=== PATIENT | male | born 1970 | race Caucasian/White ===

== ENCOUNTER 2025-06-11 21:10 | Emergency (ER) | payer BC, SELFPAY ==
[2025-06-11 21:21] VITALS: BP 185/120
[2025-06-11 21:37] LABS: Hematocrit 47.5 % (39.0-52.0); Hemoglobin 17.2 g/dL (13.0-18.0); Mean Corp Hgb Conc. 36.2 g/dL (33.0-37.0); Mean Corpuscular Volume 95.4 fL (80.0-94.0); Nucleated Red Blood Cells % 0 % (-); Platelet Count 227 10^3/uL (130-400); Red Cell Dist. Width 12.5 % (11.5-14.5)
[2025-06-11 21:58] LABS: ALT (SGPT) 61 U/L (0-50); AST (SGOT) 39 U/L (17-59); Albumin 4.5 g/dl (3.5-5.0); Alkaline Phosphatase 60 U/L (38-126); Blood Urea Nitrogen 11 mg/dl (9-20); Calcium 9.3 mg/dl (8.4-10.2); Carbon Dioxide 26 mmol/L (22-30); Chloride 100 mmol/L (98-107); Glucose 102 mg/dl (70-99); Potassium 3.9 mmol/L (3.5-5.1); Sodium 136 mmol/L (135-145); Total Protein 7.3 g/dl (6.3-8.2); eGFR > 60.00
[2025-06-11 22:09] LABS: Troponin I < 0.012 ng/ml
[2025-06-12] VITALS (12 sets, daily range): BP systolic 136–161; BP diastolic 81–107; BMI 26.8
--- NOTE | 2025-06-12 01:40 | ED.GENMED ---
History of Present Illness
<Oneil Samuels DO - Last Filed: 06/12/25 06:41>
General
Chief Complaint: Chest Pain
Source: patient
Time Seen by Provider: 06/12/25 01:20
History of Present Illness
History of Present Illness:
Note:
CHIEF COMPLAINT(S)
Chest pain, dizziness, and heart palpitations.
HISTORY OF PRESENT ILLNESS
The patient is a 55-year-old male with a past medical history of hypertension and diabetes who presents with symptoms of chest pain, dizziness, and palpitations that began approximately one week ago. The patient describes the chest pain as mild and
occurring intermittently, noting that it radiates to the back of the left arm and shoulder. He experiences these symptoms mainly at rest, without exertional triggers, and he feels his heart racing with episodes of dizziness, particularly when
standing. He reports a history of a similar episode years ago, attributed to dehydration. Tonight, the patient expressed concern about the persistence of his symptoms and sought evaluation. He relates the onset of symptoms to the holiday season and
irregular eating patterns, questioning whether these factors might have contributed. He admits to anxiety, which he believes may exacerbate the symptoms.
The patient acknowledges a history of smoking, which he associates with increased cardiovascular risk. Family history reveals his father of a myocardial infarction, though circumstances were complicated by lifestyle factors and possible alcohol
abuse.
PAST MEDICAL AND SURGICAL HISTORY
The patient has hypertension. He takes Metoprolol, unsure of the dosage but estimates it might be 100 mg. He takes this medication regularly, though sometimes he forgets to take it.
CHRONIC MEDICAL CONDITIONS SIGNIFICANTLY AFFECTING CARE
- Hypertension
- Diabetes
MEDICATIONS
- Metoprolol possibly 100 mg, taken at night.
REVIEW OF SYSTEMS
- Cardiovascular: Reports intermittent chest pain, heart racing, and palpitations.
- Neurological: Experiences dizziness, especially when standing.
- Overall: Concerns about anxiety contributing to symptoms.
PHYSICAL EXAM
General: Alert, no acute distress.
Skin: Warm, dry.
Head: Normocephalic, atraumatic.
Neck: Supple, trachea midline.
Eyes, Ears, Nose, Mouth, and Throat: Oral mucosa moist.
Cardiovascular: Heart regular without murmur, normal peripheral perfusion, no edema.
Respiratory: Lungs clear to auscultation, respirations are non-labored.
Gastrointestinal: Abdomen nondistended.
Back: Normal range of motion, Normal alignment.
Musculoskeletal: Normal ROM, normal strength.
Neurological: Alert and oriented to person, place, time, and situation, no focal neurological deficit observed.
Psychiatric: Cooperative, appropriate mood & affect.
PLAN
- Repeat heart enzyme tests to rule out myocardial infarction.
- Obtain chest x-ray to evaluate heart size and lung status.
- Monitor vital signs and administer Metoprolol as needed for hypertension.
DIFFERENTIAL DIAGNOSIS
The Differential Diagnosis includes, in no particular order and is not limited to:
1. Myocardial infarction
2. Anxiety disorder
3. Atrial fibrillation
4. Hypertensive crisis
5. Pericarditis
6. Gastroesophageal reflux disease
7. Acute coronary syndrome
8. Costochondritis
9. Pulmonary embolism
10. Hyperthyroidism
EKG
My independent EKG interpretation is:
- Rhythm: Normal sinus rhythm
- Forbes: Normal
- Intervals: Normal
- ST-T Changes: Non-specific changes noted
Disposition:
SUMMARY OF ENCOUNTER
The patient is a 55-year-old male with a history of hypertension, diabetes, and smoking, who presented to the emergency department with symptoms of intermittent chest pain, dizziness, and palpitations. The emergency department workup revealed normal
cardiac enzymes and two sets of troponin levels, indicating no acute myocardial infarction. A chest x-ray was performed and showed no evidence of acute or active cardiopulmonary disease. Additionally, a complete blood count was obtained, revealing a
white blood cell count of 13,000. On arrival, the patient was hypertensive with a blood pressure reading of 185/120. He was treated with his usual evening medication, Metoprolol, resulting in improved blood pressure. His heart rate remained normal.
Given the patients risk factors, including a family history of myocardial infarction and the intermittent nature of his symptoms, the case was discussed with Dr. De León from cardiology for further evaluation and workup in the emergency department.
MANAGEMENT OF THE PATIENTS CARE WAS DISCUSSED WITH
The case was discussed with Dr. Maya of cardiology, who is evaluating the patient in the emergency department for further workup.
INDEPENDENT REVIEW OF LABS AND INTERPRETATION OF TESTS
- My independent review of troponin levels was normal times two.
- My independent review of the chest x-ray shows no evidence of acute or active cardiopulmonary disease.
- My independent review of CBC indicates an unremarkable result except for a white blood cell count of 13,000.
MEDICATION RECONCILIATION
- Metoprolol was administered as part of his evening medication regimen to address elevated blood pressure.
MEDICAL DECISION MAKING
- Number and Complexity of Problems Addressed: Chronic conditions affecting care include hypertension and diabetes. The differential diagnosis list includes myocardial infarction, anxiety disorder, atrial fibrillation, hypertensive crisis,
pericarditis, gastroesophageal reflux disease, acute coronary syndrome, costochondritis, pulmonary embolism, and hyperthyroidism.
- Data:
Category 1:
My independent interpretation of results includes EKG with normal sinus rhythm, normal axis, normal intervals, and non-specific ST-T changes; Chest x-ray indicating no acute pathology; Troponin levels normal on two occasions.
Category 3:
Discussion of management with Dr. De León of cardiology for further evaluation and treatment planning.
- Risk:
Consideration of Admission/Observation: Escalation of care including admission/observation was considered given the complexity and risk of the patients presenting complaint, exam findings, and their underlying comorbidities. However, ultimately I
feel the patient is safe for outpatient management with close follow up. Reasoning: Work-up reassuring, does not reveal any acute life/organ threatening processes, patients symptoms well controlled upon reevaluation, reexamination is reassuring,
vitals are stable, patient agreeable with discharge, reliable for follow-up.
DIAGNOSIS
- Hypertensive crisis (ICD-10: I16.0)
- Chest pain, unspecified (ICD-10: R07.9)
Past History
<Oneil Samuels DO - Last Filed: 06/12/25 06:41>
Past History
ED Past Medical History: HTN
ED Past Surgical History: None
Social History
Tobacco: Smoker
Alcohol: Occasional
Drug: None (84-oray-swfr history)
Personal:
Living: with family
Employment: Employed
Family History
Family History: CAD
Phy Exam
<Oneil Samuels DO - Last Filed: 06/12/25 06:41>
Physical Exam
Physical Exam:
.
Scores
<Oneil Samuels DO - Last Filed: 06/12/25 06:41>
Heart Score for Chest Pain Patients
STEMI patient?: No
History: Moderately Suspicious
ECG: Nonspecific Repolarization
Age: >45 - <65 years
Risk Factors: 1 or 2 Risk Factors
Troponin: </= Normal Limit
Heart Score for Chest Pain Patients: 4
Heart Score Risk: 20.3% MACE over next 6 weeks
<Brent Duong MD - Last Filed: 06/12/25 09:11>
Heart Score for Chest Pain Patients
Heart Score for Chest Pain Patients: 4
Heart Score Risk: 20.3% MACE over next 6 weeks
Course
<Oneil Samuels DO - Last Filed: 06/12/25 06:41>
Orders/Labs/Results
Orders:
Orders
06/11/25 21:11
Electrocardiogram (*1) Urgent
Reason for Study: Other
Other Reason for Exam: Respiratory Distress
EKG- Treatment ONCE
CR Chest - 2 Views Urgent
Comment:
Reason For Exam: respiratory distress
06/11/25 21:25
Complete Blood Count/With Diff Urgent
Comprehensive Metabolic Panel Urgent
Troponin I Urgent
06/12/25 01:05
Electrocardiogram (*1) Urgent
Reason for Study: Chest Pain
Comment: Repeat w/ trop
EKG- Treatment ONCE
06/12/25 01:20
Vital Signs- Treatment ONCE
Frequency: Once
06/12/25 01:24
Troponin I Urgent
06/12/25 01:35
Metoprolol Xl [Toprol Xl] 50 mg PO NOW STA
06/12/25 01:53
Losartan [Cozaar] 100 mg PO NOW STA
06/12/25 06:20
Troponin I Urgent
Abnormal Lab Results
06/11/25
21:25
WBC 13.0 H 10^3/uL
(4.8-10.8)
MCV 95.4 H fL
(80.0-94.0)
MCH 34.5 H pg
(27.0-31.0)
Abs Immat Gran (auto) 0.1 H 10^3/uL
(0-0.05)
Absolute Neuts (auto) 8.5 H 10^3/uL
(1.4-6.5)
Absolute Monos (auto) 1.3 H 10^3/uL
(0.1-0.6)
Monocytes % 10.1 H %
(1.7-9.3)
Glucose 102 H mg/dl
(70-99)
ALT 61 H U/L
(0-50)
06/11/25 21:25
06/11/25 21:25
Vital Signs
Initial and Last Documented VS:
Initial Vital Signs
Temp Pulse Resp Pulse Ox
97.5 F 100 18 99
06/11/25 21:17 06/11/25 21:17 06/11/25 21:17 06/11/25 21:17
Last Documented Vital Signs
Temp Pulse Resp BP Pulse Ox
98.6 F 67 20 138/97 94
06/12/25 07:21 06/12/25 07:21 06/12/25 07:21 06/12/25 07:21 06/12/25 07:21
<Brent Duong MD - Last Filed: 06/12/25 09:11>
Orders/Labs/Results
Orders:
Orders
06/11/25 21:11
Electrocardiogram (*1) Urgent
Reason for Study: Other
Other Reason for Exam: Respiratory Distress
EKG- Treatment ONCE
CR Chest - 2 Views Urgent
Comment:
Reason For Exam: respiratory distress
06/11/25 21:25
Complete Blood Count/With Diff Urgent
Comprehensive Metabolic Panel Urgent
Troponin I Urgent
06/12/25 01:05
Electrocardiogram (*1) Urgent
Reason for Study: Chest Pain
Comment: Repeat w/ trop
EKG- Treatment ONCE
06/12/25 01:20
Vital Signs- Treatment ONCE
Frequency: Once
06/12/25 01:24
Troponin I Urgent
06/12/25 01:35
Metoprolol Xl [Toprol Xl] 50 mg PO NOW STA
06/12/25 01:53
Losartan [Cozaar] 100 mg PO NOW STA
06/12/25 06:20
Troponin I Urgent
Abnormal Lab Results
06/11/25
21:25
WBC 13.0 H 10^3/uL
(4.8-10.8)
MCV 95.4 H fL
(80.0-94.0)
MCH 34.5 H pg
(27.0-31.0)
Abs Immat Gran (auto) 0.1 H 10^3/uL
(0-0.05)
Absolute Neuts (auto) 8.5 H 10^3/uL
(1.4-6.5)
Absolute Monos (auto) 1.3 H 10^3/uL
(0.1-0.6)
Monocytes % 10.1 H %
(1.7-9.3)
Glucose 102 H mg/dl
(70-99)
ALT 61 H U/L
(0-50)
06/11/25 21:25
06/11/25 21:25
Vital Signs
Initial and Last Documented VS:
Initial Vital Signs
Temp Pulse Resp Pulse Ox
97.5 F 100 18 99
06/11/25 21:17 06/11/25 21:17 06/11/25 21:17 06/11/25 21:17
Last Documented Vital Signs
Temp Pulse Resp BP Pulse Ox
98.6 F 67 20 138/97 94
06/12/25 07:21 06/12/25 07:21 06/12/25 07:21 06/12/25 07:21 06/12/25 07:21
<Oneil Samuels DO - Last Filed: 06/12/25 06:41>
*Pulse Oximetry
SaO2: 93
Oxygen Mode of Delivery: Room air
Patient hypoxic: no
*Critical Care Note
Total Time (30-74mins, 75-104mins- exclusive of procedures): Not Applicable
<Brent Duong MD - Last Filed: 06/12/25 09:11>
Update Note
Update Note:
Pt evaluated at bedside by cardiology () - pt will be set up for urgent outpatient evaluation, including outpatient stress echo. Pt otherwise is hemodynamically stable and appears comfortable at time of discharge
ED Attending Note
<Oneil Samuels DO - Last Filed: 06/12/25 06:41>
-
Portions of this chart may have been created with voice recognition software.� Occasional wrong word or��sound alike� substitutions may have occurred due to the inherent limitations of voice recognition software.
Discharge Plan
Departure
Patient Disposition: Home (Routine Discharge)
Date of Disposition: 06/12/25
Time of Disposition: 03:04
Patient with high blood pressure during this ER visit?: Yes
Discharge Problem:
Chest pain
Instructions: Chest Pain DCA Follow Up
Prescriptions:
New
losartan 50 mg tablet
50 mg PO DAILY Qty: 30 0RF
amlodipine 5 mg tablet
5 mg PO DAILY Qty: 30 3RF
Continued
metoprolol succinate 25 MG tablet extended release 24 hr
50 mg PO DAILY
Referrals:
Feliciano Hope MD [Active, Cardiology] - 06/28/25 8:40 am
Referral Note: You are scheduled to see Dr. Hope's physician assistant front desk manager, Jacqueline, at the [place] office on 06/28/2025 at 8:40 AM. Please call [phone] if you need to reschedule
Yolanda Morris MD [Family Provider, Internal Medicine]
Activity Restrictions/Additional Instructions:
- You have an echocardiogram (ultrasound of the heart) scheduled at the [facility] 06/19/2025 at 3 PM.
- You have an exercise nuclear stress test scheduled at the [facility] on 06/25/2025 at 7:40 AM. Please do not take your usual dose of Toprol-XL (metoprolol succinate) the night before or morning of the test. We will call you with
results same day.
- You are scheduled to see Dr. Hope's physician assistant front desk manager, Jacqueline, at the [place] office on 06/28/2025 at 8:40 AM
- Keep taking your usual dose of Toprol-XL (metoprolol succinate) 50 mg once a day
- Continue taking your usual dose of losartan 50 mg daily, but start taking it in the morning and combine it with the new medication amlodipine (Norvasc) 5 mg once a day. We will follow-up with your blood pressures at the time of your stress test.
Pending your blood pressures over the next month you may not need amlodipine long-term so we only sent a 30-day prescription with 3 refills to your pharmacy in case we need to stop it.
Interventions
Interventions:
*General Assessment Last Done: 06/11/25 21:20
*Neglect/Abuse Screening Last Done: 06/11/25 21:20
*ED COVID-19 Vaccine History Last Done: 06/11/25 21:20
*ED Influenza Vaccine History Last Done: 06/11/25 21:20
[facility] Fall Risk Assessment Tool Last Done: 06/12/25 02:21
*Risk Screen - Suicide (C-SSRS) Last Done: 06/11/25 21:20
ED- Cardiac Assessment Last Done: 06/12/25 02:22
Discharge Date and Time
Print Language: PORTUGUESE
[2025-06-12] MEDS: TOPROL XL 50 MG PO (02:03)
[2025-06-12] MEDS: COZAAR 100 MG PO (02:04)
[2025-06-12 02:15] LABS: Troponin I < 0.012 ng/ml
[2025-06-12 07:00] LABS: Troponin I < 0.012 ng/ml
--- NOTE | 2025-06-12 08:09 | EDRN ---
cardiology currently at the pts bedside
--- NOTE | 2025-06-12 09:17 | CON.CAR ---
Addendum entered and electronically signed by Marissa Maya DO 06/12/25 15:18:
I saw and examined the patient.
The Addiction Treatment Counselor's note was reviewed and I agree with the note.
Comment: Patient was seen and examined in ER bed 8 with cardiac PA. Patient came to the ER late last night with complaints of chest pain and dizziness and following serially undetectable troponins was held in the ER for cardiology evaluation in the
morning. Patient reports that he started with chest pain 1 to 2 weeks ago described as a left breast ache that radiates to his left arm that happens several times a day and always resolves spontaneously within minutes without specific intervention.
Patient also reports episodes of dizziness that can happen with change in position or sometimes while seated without any change in position. Overall symptoms have been worse over the last couple of weeks and patient came to the ER last night to
have the symptoms evaluated. Patient initially felt some relief in the ER when he was told he could continue to wait in the waiting room based on his initial ECG and blood work results, but he did have at least 2 more episodes of chest pain during
his time in the ER and ECG without change on recheck and troponin serially undetectable. Patient is concerned because he has been indulging more with the holidays and reports that he is drinking on a daily basis and he will not give me an exact
amount but says that he is drinking 'way too much vodka' on a daily basis. Patient has also continued to smoke 1.5 PPD. Patient is very good with following up with his PCP, Dr. Morris and was last seen in her office in April and his BP was
132/80, there was some concern that his LFTs were elevated, but those were rechecked 2 weeks following his office visit in early April and were improved. Patient says that beginning May 14 he started drinking much more than usual and has
been continuing throughout the month, but is planning to cut way back on his drinking. Patient reports that over the last year his general pattern is 1 month of excessive drinking and then 1 month of sobriety and alternating [id number].
Despite this pattern the chest pain is overall new prompting the ER evaluation.
General: No acute distress, AAOX3
Neck: Negative JVD
Heart: Regular, Negative S3 positive S1/S2, Negative S4, No murmur
Lungs: CTA b/l, negative wheezes/rales/rhonchi
Abd: Positive BS, NT/ND, neg rebound/rigidity/guarding
Ext: Negative cyanosis/clubbing/edema
Neuro: nonfocal
Plan:
Atypical chest pain
-Serially negative troponins
-Chest x-ray no active cardiopulmonary disease
-ECG reviewed by me shows nonspecific ST and T wave changes that look similar to what he had in 2018
-Patient has risk factors including age, HTN, diabetes and smoking. Given his symptoms of chest pain he is recommended an exercise nuclear stress test which has been scheduled by our office to be performed in early June, the patient did not want
to have testing on a Wednesday.
-Check echo given his chest pain and abnormal ECG including risk factors as outlined above and this is also scheduled and early June based on his guidelines for scheduling testing.
-Patient was encouraged to abstain from alcohol and states this was already his plan and he has over the last year been able to go a month at a time without any drinking.
-Patient was encouraged to quit smoking, but he says this will be much harder for him. Patient is planning on returning to the gym and thinks he may be able to cut down on his cigarette use, but unlikely to completely eliminate.
-His last HgbA1c was 5.4% 01/2025, recheck using blood work from ER, results pending
-LFTs were elevated in early April and then improved later in April, but elevated in the ER again today and likely related to the recent increase in drinking over the last month
- Blood pressures elevated-will add amlodipine 5 mg daily which he will take around the same time of his ARB and if tolerates can later be combined. Continue metoprolol.
-Outpatient echo, stress test and cardiology follow-up arranged. Coordinated with the patient's RN in the ER and also the ER physician that took over his care this morning that the patient is ready for discharge from a cardiac standpoint
Original Note:
Consultation
Consultation Request
Date/Time Consultation Requested: 06/12/2025
Date/Time Consultation Performed: 06/12/2025
Requesting Provider: Dr. Samuels in the ER
Performing Provider: Dr. Maya
Reason for Consultation: Chest pain
Medical History
-
History of Present Illness:
Patient came to the ER late last night with complaints of chest pain and dizziness and following serially undetectable troponins was held in the ER for cardiology evaluation in the morning. Patient reports that he started with chest pain 1 to 2
weeks ago described as a left breast ache that radiates to his left arm that happens several times a day and always resolves spontaneously within minutes without specific intervention. Patient also reports episodes of dizziness that can happen with
change in position or sometimes while seated without any change in position. Overall symptoms have been worse over the last couple of weeks and patient came to the ER last night to have the symptoms evaluated. Patient initially felt some relief in
the ER when he was told he could continue to wait in the waiting room based on his initial ECG and blood work results, but he did have at least 2 more episodes of chest pain during his time in the ER and ECG without change on recheck and troponin
serially undetectable. Patient is concerned because he has been indulging more with the holidays and reports that he is drinking on a daily basis and he will not give me an exact amount but says that he is drinking 'way too much vodka' on a daily
basis. Patient has also continued to smoke 1.5 PPD. Patient is very good with following up with his PCP, Dr. Morris and was last seen in her office in April and his BP was 132/80, there was some concern that his LFTs were elevated, but those
were rechecked 2 weeks following his office visit in early April and were improved. Patient says that beginning May 14 he started drinking much more than usual and has been continuing throughout the month, but is planning to cut way back on
his drinking. Patient reports that over the last year his general pattern is 1 month of excessive drinking and then 1 month of sobriety and alternating [id number]. Despite this pattern the chest pain is overall new prompting the ER evaluation.
PMH:
HTN
Active smoker, smoking 1.5 PPD
Type II diabetic
EtOH use disorder
Past Medical History
Past Medical History: Other (In HPI)
Past Surgical History: None
Social History
Tobacco: Smoker (Smokes 1.5 packs/day)
Alcohol: Daily (Patient will not give me an exact amount, but says he drinks 'way too much vodka' every day)
Drug: None
Personal:
Living: With Family
Employment: Employed
Family History
Family History: CAD (Patient's father of an HI at age 60)
Allergies / Home Medications
Allergy/AdvReac Type Severity Reaction Status Date / Time
No Known Allergies Allergy Verified 06/11/25 21:21
�Medication �Instructions �Recorded �Confirmed �Type
metoprolol succinate 25 mg 50 mg PO DAILY 11/05/17 06/12/25 History
tablet,extended release 24 hr
amlodipine 5 mg tablet 5 mg PO DAILY Blood pressure #30 06/12/25 Rx
tabs
losartan 50 mg tablet 50 mg PO DAILY Blood pressure #30 06/12/25 Rx
tabs
Review of Systems
-
History Source: Patient
All other systems: Negative unless noted
Physical Exam
Vital Signs
Temp Pulse Resp BP Pulse Ox
98.6 F 72 14 150/96 96
06/12/25 07:21 06/12/25 08:00 06/12/25 08:00 06/12/25 07:49 06/12/25 08:00
GEN: NAD, AAO x 3
HEENT: EOMI, MMM
LUNGS: RA. CTA B/L, no wheeze or rales
CV: SR on telemetry. Reg, S1/S2, no murmur
ABD: ND
EXT: No edema B/L LE
NEURO: Gross non-focal
SKIN: No rash
Lab Results
06/11/25 21:25
06/11/25 21:25
Troponin I < 0.012 ng/ml 06/12/25 06:20
[id number] Pept Cancelled 06/11/25 21:11
Impression / Plan
-
PCP: Dr. Yolanda Morris
Cardiology: Dr. Hope, last seen in 2017
Impression:
Presented with chest pain and dizziness 06/11/2025
Chest pain
Dizziness
HTN
Active smoker, smoking 1.5 PPD
Type II diabetic
Elevated LFTs
EtOH use disorder
Stress echo 12/13/17: Normal stress echo with normal hemodynamic response to exercise, completed 9 minutes of Renato protocol reaching 92% of MPHR
Plan:
-Patient came to the ER late last night with complaints of chest pain and dizziness and following serially undetectable troponins was held in the ER for cardiology evaluation in the morning. Patient reports that he started with chest pain 1 to 2
weeks ago described as a left breast ache that radiates to his left arm that happens several times a day and always resolves spontaneously within minutes without specific intervention. Patient also reports episodes of dizziness that can happen with
change in position or sometimes while seated without any change in position. Overall symptoms have been worse over the last couple of weeks and patient came to the ER last night to have the symptoms evaluated. Patient initially felt some relief in
the ER when he was told he could continue to wait in the waiting room based on his initial ECG and blood work results, but he did have at least 2 more episodes of chest pain during his time in the ER and ECG without change on recheck and troponin
serially undetectable. Patient is concerned because he has been indulging more with the holidays and reports that he is drinking on a daily basis and he will not give me an exact amount but says that he is drinking 'way too much vodka' on a daily
basis. Patient has also continued to smoke 1.5 PPD. Patient is very good with following up with his PCP, Dr. Morris and was last seen in her office in April and his BP was 132/80, there was some concern that his LFTs were elevated, but those
were rechecked 2 weeks following his office visit in early April and were improved. Patient says that beginning May 14 he started drinking much more than usual and has been continuing throughout the month, but is planning to cut way back on
his drinking. Patient reports that over the last year his general pattern is 1 month of excessive drinking and then 1 month of sobriety and alternating [id number]. Despite this pattern the chest pain is overall new prompting the ER evaluation.
-ECG reviewed by me shows nonspecific ST and T wave changes that look similar to what he had in 2018
-Troponin serially undetectable
-Patient has risk factors including age, HTN, diabetes and smoking. Given his symptoms of chest pain he is recommended an exercise nuclear stress test which has been scheduled by our office to be performed in early June, the patient did not want
to have testing on a Wednesday.
-Check echo given his chest pain and abnormal ECG including risk factors as outlined above and this is also scheduled and early June based on his guidelines for scheduling testing.
-Patient was encouraged to abstain from alcohol and states this was already his plan and he has over the last year been able to go a month at a time without any drinking.
-Patient was encouraged to quit smoking, but he says this will be much harder for him. Patient is planning on returning to the gym and thinks he may be able to cut down on his cigarette use, but unlikely to completely eliminate.
-His last HgbA1c was 5.4% 01/2025, recheck using blood work from ER, orders placed by me
-LFTs were elevated in early April and then improved later in April, but elevated in the ER again today and likely related to the recent increase in drinking over the last month
-I checked orthostatic vital signs myself in the ER and patient was not orthostatic, supine BP 151/103 with a HR of 70, sitting BP 149/102 with an HR of 73 and standing BP 150/83 with an HR 70 and patient was not symptomatic. His symptoms of
dizziness have been with change in position and at rest, but not consistent with change in position. His symptoms may overall be related to poor control of his BP despite his reported compliance with his usual doses of Toprol-XL 50 mg HS and
losartan 50 mg HS.
-Patient is willing to change his BP regimen to include the addition of amlodipine 5 mg daily and he will take this along with losartan 50 mg daily and change that to morning time dosing. He will continue with Toprol-XL 50 mg HS. pending his
improvements with reducing alcohol intake, cutting back on smoking and returning to the gym he may have improved to BP and may not need amlodipine long-term. Will follow-up with his BP at the time of his stress test and he also has a home BP
machine that he can monitor on his own.
-Outpatient echo, stress test and cardiology follow-up arranged. Coordinated with the patient's RN in the ER and also the ER physician that took over his care this morning that the patient is ready for discharge from a cardiac standpoint with
discharge instructions updated by me and prescription for amlodipine E scribed by me.
== END 2025-06-12 09:17 | disposition home or self-care (01) ==
LOC: EMR 21:10
PROVIDERS: Emergency Medicine; EMERGENCY PHYSICIAN Emergency Medicine; FAMILY PHYSICIAN Internal Medicine; OTHER PHYSICIAN Internal Medicine Cardiovascular Disease
DX: R07.89 Other chest pain (principal); R42 Dizziness and giddiness; R00.2 Palpitations; M25.512 Pain in left shoulder; I16.9 Hypertensive crisis, unspecified; R79.89 Other specified abnormal findings of blood chemistry; I10 Essential (primary) hypertension; E11.9 Type 2 diabetes mellitus without complications; F41.9 Anxiety disorder, unspecified; F10.10 Alcohol abuse, uncomplicated; F17.210 Nicotine dependence, cigarettes, uncomplicated; Z79.899 Other long term (current) drug therapy; Z82.49 Family history of ischemic heart disease and other diseases of the circulatory system
CPT/HCPCS: 99285; 71046; 80053; 84484; 85025; 93005